=== PATIENT | male | born 1990 | race Caucasian/White ===

== ENCOUNTER 2023-06-23 08:26 | Emergency (ER) | payer BC, OTHER, SELFPAY ==
[~2023-06-23] VITALS: Ht 182.9 cm; Wt 77.0 kg
[2023-06-23 08:39] VITALS: TEMP 96.8
[2023-06-23] MEDS ORDERED: BUPR1FIL (08:56)
[2023-06-23] MEDS ORDERED: NALOXONE INJ 0.4MG/1ML VIAL IV STA ×2 (08:59→10:16)
[2023-06-23] MEDS ORDERED: NS 1,000 ML IV ONE (09:15)
[2023-06-23 09:30] LABS: HEMATOCRIT 46.9 % (42.0-52.0); HEMOGLOBIN 15.5 g/dl (13.5-17.5); MEAN CORPUSCULAR HEMOGLOBIN 31.8 pg (27.0-33.0); MEAN CORPUSCULAR VOLUME 96.1 fl (80.0-96.0); PLATELET COUNT, AUTOMATED 370 10^3/uL (150-450); RED BLOOD COUNT 4.88 10^6/uL (4.30-6.10); WHITE BLOOD COUNT 8.1 10^3/uL (4.0-10.0)
[2023-06-23 10:03] LABS: ETHYL ALCOHOL (ETHANOL) 0.006 % (0.000-0.010)
[2023-06-23 10:05] LABS: ALBUMIN 4.5 G/DL (3.2-5.2); ALKALINE PHOSPHATASE 100 U/L (46-116); ALT/SGPT 23 U/L (7.0-40); AST/SGOT 18 U/L (<34); BILIRUBIN,DIRECT 0.6 MG/DL (<0.4); BILIRUBIN,TOTAL 1.6 MG/DL (0.3-1.2); BLOOD UREA NITROGEN 14 MG/DL (9-23); CARBON DIOXIDE LEVEL 29 MMOL/L (20-31); CHLORIDE LEVEL 103 MMOL/L (98-107); CREATININE FOR GFR 0.89 MG/DL (0.70-1.30); GLOMERULAR FILTRATION RATE > 60.0 (>60); GLUCOSE, FASTING 170 MG/DL (60-100); POTASSIUM SERUM 4.2 MMOL/L (3.5-5.1); SODIUM LEVEL 138 MMOL/L (136-145); TOTAL PROTEIN 7.2 G/DL (5.7-8.2)
[2023-06-23 11:56] VITALS: BP 119/68; O2SAT 95
== END 2023-06-23 11:56 | disposition home or self-care (01) ==
LOC: M ED 08:26 → EDBD 08:26 → M ED 11:56
DX: T40.2X1A Poisoning by other opioids, accidental (unintentional), initial encounter (principal)
CPT/HCPCS: 80047; 80048; 80076; 82077; 85027; 93005; 96361; 96374; 96375; 99284; J2310

== ENCOUNTER → 2024-02-11 | Outpatient (CLI) | payer SELFPAY ==
[~2024-02-11] MED LIST: BUPR1FIL
== END ==
LOC: M OUTALCOH 09:44
PROVIDERS: ATTEND Psychiatry & Neurology Psychiatry
DX: F10.10 Alcohol abuse, uncomplicated (principal); F17.200 Nicotine dependence, unspecified, uncomplicated

== ENCOUNTER 2024-03-02 16:00 | Outpatient (RCR) | payer SELFPAY | END 2024-03-08 | LOC: M OUTALCOH 16:00 | PROVIDERS: ATTEND Psychiatry & Neurology Psychiatry | DX: F10.10 Alcohol abuse, uncomplicated (principal); F17.200 Nicotine dependence, unspecified, uncomplicated ==